=== PATIENT | male | born 1990 | race Caucasian/White ===

== ENCOUNTER → 2022-05-27 | Outpatient (CLI) | payer OTHER, SELFPAY ==
[2022-05-27 21:58] LABS: Absolute Lymphocyte Count 1.61 X10^3/uL (0.83-4.51); Absolute Neutrophil Count 4.4 X10^3/uL (2.0-7.7); Basophil# 0.07 X10^3/uL; Eosinophil# 0.04 X10^3/uL; Eosinophils% 0.6 % (0-5); Hematocrit 45.1 % (40-54); Hemoglobin 15.1 g/dL (13.0-16.5); Lymphocyte # 1.61 X10^3/ul (0.83-4.51); Mean Corp Hgb Conc 33.5 g/dL (32-36); Mean Corpuscular Hgb 29.7 pg (27.0-32.0); Mean Corpuscular Volume 88.6 fL (80-94); Monocyte# 0.61 X10^3/uL; Monocyte% 9.1 % (0-10); NRBC Flagged by Analyzer 0 % (0-5); Neutrophil # 4.36 X10^3/uL (2.7-7.7); Platelet Count 215 K/mm3 (150-450); RBC Distribution Width CV 12.2 % (11.6-14.6); Red Blood Count 5.09 M/mm3 (4.6-6.2); White Blood Count 6.7 K/mm3 (4.4-11.0)
[2022-05-27 22:29] LABS: ALB/GLOB Ratio 1.2 RATIO (0.9-2.4); AST(SGOT) 16 U/L (15-37); Alanine Aminotransfer ALT/SGPT 19 U/L (16-61); Albumin, Serum 4.4 g/dL (3.2-5.0); Alkaline Phosphatase 81 U/L (45-117); Anion Gap 4 (5-15); BUN 19 mg/dL (7-18); BUN/Creat Ratio 18.4 RATIO (10-20); Calcium,Total 9.7 mg/dL (8.5-10.1); Chloride 104 mmol/L (98-107); Creatinine, Serum 1.03 mg/dL (0.70-1.30); EST Glomerular Filtration Rate 88 mL/min (>60); Est Glom Filt Rate - Afr Amer 106 mL/min (>60); Globulin 3.7 g/dL (2.2-4.2); Glucose 96 mg/dL (74-106); Potassium 4.7 mmol/L (3.5-5.1); Protein, Total 8.1 g/dL (6.4-8.2); Sodium Level 138 mmol/L (136-145)
== END | disposition home or self-care (01) ==
PROVIDERS: Visit Provider Nurse Practitioner
DX: R19.7 Diarrhea, unspecified (principal); R10.32 Left lower quadrant pain
CPT/HCPCS: 80053; 85025

== ENCOUNTER → 2022-07-24 | Outpatient (CLI) | payer OTHER, SELFPAY ==
--- NOTE | 2022-07-24 14:48 | CT_ITS ---
STUDY: CT ABDOMEN AND PELVIS WITH CONTRAST REASON FOR EXAM: Male, 32 years old. Lower abd pain in rectum -- sensation of the need to defecate but cannot RADIATION DOSAGE (If Supplied By Facility): CTDIvol = ( 15.01 ) mGy, DLP = ( 619.26 ) mGycm TECHNIQUE: Transaxial images were obtained from the dome of the diaphragm to the symphysis pubis without oral contrast. IV 100mL Isovue-300 was administered. Sagittal and coronal images were reconstructed. Individualized dose optimization techniques were used for this CT. COMPARISON: None. FINDINGS: The visualized lung bases are unremarkable. The visualized portions of the heart are within normal limits. Normal liver. Normal gallbladder and extrahepatic biliary system. Normal spleen. Normal pancreas. Normal bilateral adrenal glands. Normal right kidney. Normal left kidney. Incidental note is made of a retroaortic left renal vein. Normal visualized stomach. Normal small intestine. Findings suggestive of a mural thickening of the distal rectum. Clinical correlation is recommended. Scattered sigmoid diverticula. The appendix is visualized and appears normal. Normal abdominal aorta. Normal inferior vena cava. Normal retroperitoneum. Normal urinary bladder. There is a small umbilical hernia containing fat. Small benign-appearing lymph nodes are seen in both inguinal regions. Normal osseous structures. CT/Abdomen/Pelvis WITH Contrast IMPRESSION: Findings suggests of circumferential wall thickening of the distal rectum. Clinical correlation is recommended. Electronically Signed: David Hirsch MD at 15:16 EDT ,
== END | disposition home or self-care (01) ==
PROVIDERS: PCP Nurse Practitioner; Referring Provider Nurse Practitioner; Visit Provider Nurse Practitioner
DX: R10.32 Left lower quadrant pain (principal); R19.7 Diarrhea, unspecified
CPT/HCPCS: 74177; Q9967

== ENCOUNTER → 2023-11-22 | Outpatient (CLI) | payer BC, SELFPAY ==
[2023-11-25 13:08] LABS: Deamidated Gliadin IgA 10 units (0-19); Deamidated Gliadin IgG 4 units (0-19); Endomysial Antibody IgA Negative (Negative); Immunoglobulin A 204 mg/dL (90-386); t-Transglutaminase IgA <2 U/mL (0-3)
== END | disposition home or self-care (01) ==
PROVIDERS: PCP Nurse Practitioner; Visit Provider Nurse Practitioner
DX: K58.9 Irritable bowel syndrome, unspecified (principal)
CPT/HCPCS: 82784; 83516; 86255

== ENCOUNTER → 2025-09-11 | Outpatient (CLI) | payer BC, SELFPAY ==
--- OUTSIDE RECORDS SUMMARY | 2025-09-11 21:24 | XMS RPT_ITS | CCD ---
Author Organization [facility] Care Team Providers Care Automotive Refinish Technician Name Role Phone Paulo Hoyt Primary Care Provider [phone] FRANSISCO LAINEZ Primary Care Unavailable SHEA VELASCO Referring Unavailable FRANSISCO LAINEZ Primary Care Unavailable SHEA VELASCO Referring Unavailable FRANSISCO LAINEZ Primary Care Unavailable Rod DUST MILL OPERATORShea Attending Unavailable Shea Velasco NP Primary Care Unavailable Unavailable Primary Care Provider Unavailabl e Allergies Allergy Classification Reported Allergen(s) Allergy Type Date of Onset Reaction(s) Facility (1 source) DULoxetine Drug Allergy 11-22-2023 insomnia [facility] (1 source) DULoxetine Drug Allergy 11-22-2023 [facility] Repository Medications Current Medications Medication Drug Class(es) Dates Sig (Normalized) Sig (Original) amoxicillin 875 mg / clavulanate 125 mg oral tablet (2 sources) Penicillin-class Antibacterial Start: 11-22-2023 take 1 tablet by mouth twice daily Amoxicillin-Pot Clavulanate Active 1 TABLET PO TWICE A DAY November 22, 2023 12:00am Start: 12-02-2022 End: 03-10-2023 take 1 tablet by mouth twice daily Amoxicillin-Pot Clavulanate Discontinued 1 TABLET PO TWICE A DAY December 02, 2022 12:00am March 10, 2023 9:47am dicyclomine hydrochloride 10 mg oral capsule (1 source) Anticholinergic Start: 11-22-2023 take 10 mg by mouth twice daily Dicyclomine Active 10 MG PO TWICE A DAY November 22, 2023 12:00am predniSONE 20 mg oral tablet (2 sources) Start: 11-22-2023 take 40 mg by mouth once daily Prednisone Active 40 MG PO DAILY November 22, 2023 12:00am Start: 12-02-2022 End: 03-10-2023 take 40 mg by mouth once daily Prednisone Discontinued 40 MG PO DAILY December 02, 2022 12:00am March 10, 2023 9:47am valACYclovir 500 mg oral tablet (4 sources) Herpesvirus Nucleoside Analog DNA Polymerase Inhibitor, Herpes Simplex Virus Nucleoside Analog DNA Polymerase Inhibitor, Herpes Zoster Virus Nucleoside Analog DNA Polymerase Inhibitor Start: 02-19-2017 valACYclovir (VALTR EX) 500 MG tablet One q day 90 tablet 1 02/19/2017 Active Start: 09-03-2014 End: 05-27-2022 take 1 tablet by mouth once daily Valacyclovir Hcl (Valtrex) 1,000 MG tablet Discontinued 1000 MG PO DAILY September 03, 2014 12:00am May 27, 2022 5:49pm Completed/Discontinued Medications Medication Drug Class(es) Dates Sig (Normalized) Sig (Original) acetaminophen 325 mg / oxyCODONE hydrochloride 5 mg oral tablet (3 sources) Opioid Agonist Start: 09-03-2014 End: 05-27-2022 take 1 tablet by mouth every four hours as needed Oxycodone-Acetamin ophen Discontinued 1 - 2 TABLET PO EVERY 4 HOURS NEEDED September 03, 2014 12:00am May 27, 2022 5:48pm DULoxetine 30 mg delayed release oral capsule (2 sources) Serotonin and Norepinephrine Reuptake Inhibitor Start: 12-02-2022 End: 11-22-2023 take 30 mg by mouth once daily Duloxetine Discontinued 30 MG PO daily March 10, 2023 9:47am November 22, 2023 8:41pm escitalopram 10 mg oral tablet (3 sources) Serotonin Reuptake Inhibitor Start: 05-27-2022 End: 12-02-2022 take 10 mg by mouth once daily Escitalopram Oxalate Discontinued 10 MG PO DAILY May 26, 2022 11:00pm December 02, 2022 3:04pm metroNIDAZOLE 250 mg oral tablet (3 sources) Nitroimidazole Antimicrobial Start: 05-27-2022 End: 06-06-2022 take 250 mg by mouth three times daily Metronidazole Discontinued 250 MG PO THREE TIMES A DAY 26 07May 26, 2022 11:00pm June 05, 2022 11:04pm Problems Active Problems Problem Classification Problem Date Documented Da te Episodic/Chronic Abdominal pain (3 sources) Left lower quadrant pain; Translations: [Left lower quadrant pain] 05-27-2022 Episodic Anxiety disorders (1 source) Mixed anxiety and depressive disorder; Translations: [Anxiety and depression] 06-28-2015 Chronic Chronic obstructive pulmonary disease and bronchiectasis (1 source) Bronchitis; Translations: [Bronchitis, not specified as acute or chronic] 12-02-2022 Episodic Immunizations and screening for infectious disease (1 source) Requires tetanus and diphtheria vaccination; Translations: [Encounter for immunization] 04-14-2025 Episodic Miscellaneous mental health disorders (1 source) Anxiety about body function or health; Translations: [Other symptoms and signs involving emotional state] 12-02-2022 Episodic Other gastrointestinal disorders (1 source) Irritable bowel syndrome; Translations: [Irritable bowel syndrome without diarrhea] 11-23-2023 Chronic Other gastrointestinal disorders (1 source) Irritable bowel syndrome without diarrhea; Translations: [Irritable bowel syndrome without diarrhea] Onset: 11-26-2023 Chronic Other gastrointestinal disorders (3 sources) Diarrhea; Translations: [Diarrhea, unspecified] 05-27-2022 Episodic Other gastrointestinal disorders (1 source) Constipation, unspecified; Translations: [Constipation, unspecified constipation type] Onset: 07-17-2022 Episodic Other male genital disorders (1 source) Pain in testicle; Translations: [Testicular pain, unspecified] Episodic Otitis media and related conditions (2 sources) Acute right otitis media; Translations: [Otitis media, unspecified, right ear] 12-02-2022 Episodic Past or Other Problems Problem Classification Problem Date Documented Da te Episodic/Chronic Other infections; including parasitic (1 source) H/O: viral illness; Translations: [History of herpes simplex infection] Onset: 02-13-2016 02-13-2016 Episodic Results Test Name Value Interpretation Reference Range Facility Celiac AB,Comprehensiveon ANTIGLIADIN IGA 10 units Normal 0-19 [facility] Comment on above: Result Comment: Nega tive 0 - 19 Weak Positive 20 - 30 Moderate to Strong Positive >30 Performed By: #### L 8124.9930 #### [facility] [place] [place], [id number] ANTIGLIADIN IGG 4 units Normal 0-19 [facility] Comment on above: Result Comment: Nega tive 0 - 19 Weak Positive 20 - 30 Moderate to Strong Positive >30 Performed By: #### L 3410.2350 #### [facility] [address] [place], [address] ENDOMYSIAL IGA Negative Normal Negative [facility] Comment on above: Performed By: #### L 3410.2350 #### [facility] [address] [place], [address] IMMUNOGLOB A QN 204 mg/dL Normal 90-386 [facility] Comment on above: Result Comment: Perf ormed at: [facility] [address] [id number] Hospital Housekeeper: Eliseo Terrazas PhD, Phone: [phone] Performed By: #### L [id number] #### [facility] [address] [place], [address] tTG IGA <2 Normal 0-3 [facility] Comment on above: Result Comment: Nega tive 0 - 3 Weak Positive 4 - 10 Positive >10 Tissue Transglutaminase (tTG) has been identified as the endomysial antigen. Studies have demonstr- ated that endomysial IgA antibodies have over 99% specificity for gluten sensitive enteropathy. Performed By: #### L [id number] #### [facility] [address] [place], [address] tTG IGG 4 U/mL Normal 0-5 [facility] Comment on above: Result Comment: Nega tive 0 - 5 Weak Positive 6 - 9 Positive >9 Performed By: #### L [id number] #### [facility] [address] [place], [address] No Panel InformationOrdered By: Shea Velasco on 11-22-2023 Anti-Gliadin IgA Antibody 10 units 0-19 [facility] Comment on above: Negative 0 - 19 Weak Positive 20 - 30 Moderate to Strong Positive >30 Anti-Gliadin IgG Antibody 4 units 0-19 [facility] Comment on above: Negative 0 - 19 Weak Positive 20 - 30 Moderate to Strong Positive >30 Endomysial IgA Antibody Negative Negative [facility] Immunoglobulin A 204 mg/dL 90-386 [facility] Comment on above: Performed at: [address] foci in the left scrotum consistent with microlithiasis. Color flow and Doppler analysis of the testicles is within normal limits. There are small cysts in the head of the right epididymis, the largest measuring 4 mm in greatest dimension. The left epididymis is unremarkable. There are no hydroceles. IMPRESSION: Mild microlithiasis on the left. No intratesticular mass. Right epididymal cysts. Report Dictated on Final Dictating Physician: MD NICHOLAS LAUREN B Signed Date and Time: 04/08/2020 11:55 am Signed by: MD NICHOLAS LAUREN B Transcribed Date and Time: 04/08/2020 11:56 Normal [facility] Vital Signs Date Time Vital Sign Value Performing Clinician Facility 04-14-2025 19:14-0400 Body temperature 97.9 [degF] Thai Sharma MD Work Phone: [facility] 04-14-2025 19:14-0400 Body weight 99.79 kg Thai Sharma MD Work Phone: [facility] 04-14-2025 19:14-0400 Diastolic blood pressure 78 mm[Hg] Thai Sharma MD Work Phone: [facility] 04-14-2025 19:14-0400 Respiratory rate 17 /min Thai Sharma MD Work Phone: [facility] 04-14-2025 19:14-0400 Systolic blood pressure 123 mm[Hg] Thai Sharma MD Work Phone: [facility] 11-22-2023 20:28-0500 Body height 195.58 cm [facility] 11-22-2023 20:28-0500 Body mass index (BMI) [Ratio] 27.5 kg/m2 [facility] 11-22-2023 20:28-0500 Body temperature 98.1 [degF] [facility] 11-22-2023 20:28-0500 Body weight 105.23 kg [facility] 11-22-2023 20:28-0500 Diastolic blood pressure 60 mm[Hg] [facility] 11-22-2023 20:28-0500 Heart rate 108 /min [facility] 11-22-2023 20:28-0500 Respiratory rate 18 /min [facility] 11-22-2023 20:28-0500 SaO2% (BldA) [Mass fraction] 95 % [facility] 11-22-2023 20:28-0500 Systolic blood pressure 100 mm[Hg] [facility] 05-27-2022 18:47-0400 Body height 195.58 cm [facility] Work Phone: 05-27-2022 18:47-0400 Body mass index (BMI) [Ratio] 23.6 kg/m2 [facility] Work Phone: 05-27-2022 18:47-0400 Body temperature 97.7 [degF] [facility] Work Phone: 05-27-2022 18:47-0400 Body weight 90.26 kg [facility] Work Phone: 05-27-2022 18:47-0400 Diastolic blood pressure 80 mm[Hg] [facility] Work Phone: 05-27-2022 18:47-0400 Heart rate 97 /min [facility] Work Phone: 05-27-2022 18:47-0400 Respiratory rate 18 /min [facility] Work Phone: 05-27-2022 18:47-0400 SaO2% (BldA) [Mass fraction] 97 % [facility] Work Phone: 05-27-2022 18:47-0400 Systolic blood pressure 120 mm[Hg] [facility] Work Phone: Encounters Encounter Date Encounter Type Care Provider Facility Start: 04-14-2025 End: 04-14-2025 Office outpatient visit 5 minutes Thai Sharma MD Work Phone: [facility] Comment on above: Need for Td vaccine Start: 11-22-2023 End: 11-22-2023 Patient encounter procedure [facility]Laboratory, Specimen Work Phone: Start: 11-22-2023 End: 11-22-2023 ambulatory Shea Velasco DUST MILL OPERATOR [facility] Work Phone: Start: 07-24-2022 End: 07-24-2022 ambulatory [facility] Work Phone: Start: 07-24-2022 End: 07-24-2022 Patient encounter procedure [facility]-Cat Scan, [facility] Start: 07-17-2022 End: 07-18-2022 ambulatory FRANSISCO LAINEZ Facility:[facility] Start: 05-29-2022 End: 2022 ambulatory SHEA VELASCO Facility:[facility] Start: 05-28-[address] [facility] ity:[facility] Start: 05-27-2022 End: 05-27-2022 ambulatory [facility] Work Phone: Start: 05-27-2022 End: 05-27-2022 Patient encounter procedure [facility]Labor[facility], Specimen Start: 04-08-2020 End: 04-08-2020 Subsequent hospital visit by physician Padmini Saravia Work Phone: [facility] Comment on above: Testicular pain, uns pecified Procedures Date Procedure Procedure Detail Performing Clinician Start: 07-24-2022 Computed tomography of abdomen and pelvis with contrast Start: 04-08-2020 Us scrotum & contents J cammie Saravia Work Phone: Plan of Treatment Date Care Activity Detail Author Start: 2038 Zoster Vaccines (1 of 2) Zoste r Vaccines (1 of 2) [facility] Start: 05-28-2025 Influenza vaccination Influenz a Vaccine (#1) [facility] Start: 05-28-2024 COVID-19 Vaccine () COVID-19 Vaccine ( season) [facility] Start: 03-18-2021 DTaP/Tdap/Td vaccine (1 - Tdap) DTaP/Tdap/Td vaccine (1 - Tdap) [place], [place] Comment on above: Postponed from 05/30 (Patient Refused) Start: 03-18-2021 HIV screening HIV screen Haylie Rosenbaum [place], [place] Comment on above: Postponed from 05/30 (Patient Refused) Start: 05-28-2020 Influenza vaccination Flu vaccine (# 1) [place], [place] Start: 2015 HPV Vaccines (1 - 3- dose standard series) HPV Vaccines (1 - 3-dose standard series) [facility] Start: 2010 DTaP/Tdap/Td Vaccine s (1 - Tdap) DTaP/Tdap/Td Vaccines (1 - Tdap) [facility] Start: 2007 Hepatitis B Vaccines (1 of 3 - 19+ 3-dose series) Hepatitis B Vaccines (1 of 3 - 19+ 3-dose series) [facility] Start: 2006 Hepatitis C screening Hepatitis C [facility] Start: 2001 Varicella vaccination Varicell a Vaccines (1 of 2 - 13+ 2-dose series) [facility] Start: 1989 MMR Vaccines (1 of 1 - Standard series) MMR Vaccines (1 of 1 - Standard series) [facility] Start: 1988 HIV screening HIV Screening [facility] Start: 1988 Lipid panel Lipid Panel [facility] Start: 1988 Yearly Adult Physical Yearly Adult P hysical [facility] Immunizations Immunization Date Immunization Notes Care Provider Fa cility 04-14-2025 tetanus and diphther ia toxoids, adsorbed, preservative free, for adult use (5 Lf of tetanus toxoid and 2 Lf of diphtheria toxoid) Thai Sharma MD Work Phone: [facility] Work Phone: 09-08-2021 influenza virus vaccine, unspecified formulation Thai Sharma MD Work Phone: [facility] Work Phone: Payers Date Payer Category Payer Self-pay 2023 Unknown [id number] 2017 Unknown [employer] [address] [id number] 2017-Present [phone] [address] [place] [address] [id number] 2010 Unknown [id number] Unknown STEFANIE [id number] Unknown [id number] Social History Date Type Detail Facility Start: 03-19-2020 Tobacco smoking stat [facility] Never smoker [place], [place] Start: 03-19-2020 Tobacco use and exposure Never used [place], [place] Start: 03-19-2020 Alcohol intake Current non-dr electronics specialist of alcohol (finding) [place], [place] Start: 1988 Sex Assigned At Not on file [place], [place] Exposure to SARS-CoV -2 (event) Not sure [place], [place] Start: 09-03-2014 End: 09-03-2014 Tobacco smoking status NHIS Unknown if ever smoked [facility] Start: 1988 Sex Assigned At Male [facility] Start: 08-22-2022 Sex Male [facility] identity [facility] Work Phone: History of Present illness Narrative 04-14-2025 Obdulia Delgado MA - 04/14/2025 6:55 PM EDT Note Date & Type Note Facility 04-14-2025 History of Present illness Narrative Pt presented for administration of TD vaccine. TD was placed in the Rt deltoid without incidence. LI documented in this encounter [facility] Work Phone: Evaluation note Note Date & Type Note Facility Evaluation note Diagnosis Onset Date Abdominal pain, LLQ acute Diarrhea acute [facility] Work Phone: Evaluation note Note Date & Type Note Facility Evaluation note Diagnosis Onset Date Bronchitis acute IBS (irritable bowel syndrome) acute Left otitis media acute [facility] Work Phone: Evaluation note Note Date & Type Note Facility Evaluation note Diagnosis Need for Td vaccine Need for prophylactic vaccination with tetanus-diphtheria (Td) documented in this encounter [facility] Work Phone: Summary Purpose Family History Relationship Condition Age at Onset Recorded Date/T diane mother Hypertension Unknown Advance Directives Documents on File Type Date Recorded Patient Pattern Lease Inspector Expl anation Advance Directives and Living Will Power of Telegraph Office Manager Reason for Referral Status Reason Specialty Diagnoses / Procedures Referre d By Contact Referred To Contact Open Radiology Diagnoses Testicular pain, unspecified Procedures US SCROTUM AND TESTICLES Padmini Saravia, PARTS ROOM ASSISTANT - CAMPAIGN ASSISTANT [address] [address] Assessments Diagnosis Testicular pain, unspecified Chief Complaint and Reason for Visit Chief Complaint Abdominal pain X2 mo nths Reason for Visit Abdominal pain, LLQ Diarrhea Chief Complaint Abdominal pain X2 mo nths LOWER ABD PAIN RECTAL Reason for Visit Abdominal pain, LLQ Diarrhea Chief Complaint Cough/Sinus Reason for Visit Bronchitis IBS (irritable bowel syndrome) Left otitis media Additional Source Comments (unrecognized sect ion and content) No Status Records FoundNo Status Records FoundNo Status Records FoundNo Status Records FoundNo Status Records Found INFORMATION SOURCE (unrecogn ized section and content) DATE CREATED AUTHOR 04/20/2020 [facility] DATE CREATED AUTHOR AUTHOR'S ORGANIZ ATION 07/22/2020 [facility] DATE CREATED AUTHOR AUTHOR'S ORGANIZ ATION 07/24/2020 [facility] DATE CREATED AUTHOR AUTHOR'S ORGANIZ ATION 07/24/2022 [facility] DATE CREATED AUTHOR AUTHOR'S NATHANIEL ATION 11/28/2023 [facility] Goals (unrecognized section and content) Goals may be documented in a n alternate sectionGoals may be documented in an alternate sectionGoals may be documented in an alternate section Care Teams (unrecognized sec tion and content) Team Status: Active Member Role Status Dates No Primary Care Physician Family Provider Active Shea Velasco DUST MILL OPERATOR, DUST MILL OPERATOR-C Primary Care Provider Active Team Status: Inactive Member Role Status Dates Shea Velasco DUST MILL OPERATOR, DUST MILL OPERATOR-C Primary Care Pr ovider, Attending Provider, Referring Provider Active Team Status: Inactive Member Role Status Dates Shea Velasco DUST MILL OPERATOR, DUST MILL OPERATOR-C Primary Care Provider, Attend ing Provider Active Reason for Visit (unrecogniz ed section and content) Reason Comments TD administration FOR RECORDS PERTAINING TO PATIENTS WHO ARE OR HAVE BEEN ENROLLED IN A CHEMICAL DEPENDENCY/SUBSTANCEABUSE PROGRAM, SOME INFORMATION MAY BE OMITTED. This clinical summary was aggregated from multiple sources. Caution should be exercised in using it in the provision of clinical care. This summary normalizes information from multiple sources, and as a consequence, information in this document may materially change the coding, format and clinical context of patient data. In addition, data may be omitted in some cases. CLINICAL DECISIONS SHOULD BE BASED ON THE PRIMARY CLINICAL RECORDS. [employer] provides no warranty or guarantee of the accuracy or completeness of information in this document.
[2025-09-11 21:47] LABS: Hematocrit 41.6 % (40-54); Hemoglobin 14.1 g/dL (13.0-16.5); Immature Granulocytes Count 0.020 X10^3/uL (0.0-0.0); Mean Corp Hgb Conc 33.9 g/dL (32-36); Mean Corpuscular Volume 85.8 fL (80-94); Mean Platelet Vol. 11.8 fl (6.2-12.0); NRBC Flagged by Analyzer 0 % (0-5); Platelet Count 213 K/mm3 (150-450); RBC Distribution Width CV 12.6 % (11.6-14.6); RBC Distribution Width SD 39.6 fl (35.1-43.9); Red Blood Count 4.85 M/mm3 (4.6-6.2); White Blood Count 7.1 K/mm3 (4.4-11.0)
[2025-09-11 22:13] LABS: AST(SGOT) 21 U/L (<=37); Alanine Aminotransfer ALT/SGPT 16 U/L (<=46); Albumin, Serum 4.6 g/dL (3.5-5.0); Alkaline Phosphatase 97 U/L (40-129); Anion Gap 11 (5-15); BUN 15 mg/dL (4-19); BUN/Creat Ratio 18.5 RATIO (10-20); Calcium,Total 9.6 mg/dL (7.6-11.0); Carbon Dioxide 25.9 mmol/L (21.0-32.0); Chloride 102 mmol/L (98-108); Cholesterol 312 mg/dL (<=200); Globulin 3.1 g/dL (2.2-4.2); Glucose 114 mg/dL (70-99); Low Density Lipoprotein Calc. 136 mg/dL; Potassium 4.1 mmol/L (3.3-5.1); Triglycerides 750 mg/dL; Very Low Density Lipoprotein 150 mg/dL (5-40); cholesterol:hdl ratio screen 9.66
== END | disposition home or self-care (01) ==
PROVIDERS: PCP Nurse Practitioner; Visit Provider Nurse Practitioner
DX: Z00.00 Encounter for general adult medical examination without abnormal findings (principal)
CPT/HCPCS: 80053; 80061; 85025